=== PATIENT | female | born 2000 | race Caucasian/White ===

== ENCOUNTER 2024-03-10 13:33 | Emergency (ER) | payer OTHER ==
[2024-03-10 13:44] VITALS: BP 104/63; PULSE 82; RESP 17; TEMP 98.9; BMI 25.4
== END 2024-03-10 15:35 | disposition home or self-care (01) ==
LOC: JERFT 13:33
DX: M25.562 Pain in left knee (principal)
CPT/HCPCS: 73562-TC-LT-FY; 73562-TC-RT-FY; 99283-25